=== PATIENT | female | born 1955 | race Caucasian/White ===

== ENCOUNTER → 2020-06-18 | Outpatient (CLI) | payer MEDICARE ==
[~2020-06-18] VITALS: Ht 154.9 cm; Wt 82.0 kg
[~2020-06-18] MED LIST: LOSA25TA21 PO; METF-960 PO
[2020-06-18 15:29] VITALS: BP 101/88
== END | disposition home or self-care (01) ==
LOC: SRCNTR 11:14
PROVIDERS: ATTEND Hospitalist
DX: I10 Essential (primary) hypertension (principal); E11.9 Type 2 diabetes mellitus without complications; K92.2 Gastrointestinal hemorrhage, unspecified
CPT/HCPCS: G0463

== ENCOUNTER → 2020-09-17 | Outpatient (CLI) | payer MEDICARE ==
[~2020-09-17] VITALS: Ht 154.9 cm; Wt 79.9 kg
[~2020-09-17] MED LIST changes: +CloNIDine HCL 0.1 MG TABLET PO ONE
[2020-09-17 10:53] VITALS: BP 200/103
[2020-09-17 13:10] LABS: GLUCOMETER DEV NAME(LOC) SHC.; GLUCOSE,POINT OF CARE 180 MG/DL (70-110)
== END | disposition home or self-care (01) ==
LOC: SRCNTR 10:31
PROVIDERS: ATTEND Hospitalist
DX: I10 Essential (primary) hypertension (principal); E11.9 Type 2 diabetes mellitus without complications; K92.2 Gastrointestinal hemorrhage, unspecified; Z79.899 Other long term (current) drug therapy; Z88.8 Allergy status to other drugs, medicaments and biological substances
CPT/HCPCS: 82962; G0463

== ENCOUNTER 2020-12-30 13:08 | Inpatient (IN) | payer MEDICARE ==
[~2020-12-30 13:08] MED LIST changes: -CloNIDine HCL 0.1 MG TABLET PO ONE; -HYDR25TA2 PO; -LOSA50TA37 PO
[2020-12-30] MEDS ORDERED: LOSARTAN POTASSIUM 50 MG TABLET PO SCH (14:04)
[2020-12-30] MEDS ORDERED: HYDROCHLOROTHIAZIDE 25 MG TABLET PO SCH (14:04)
[2020-12-30] MEDS ORDERED: HydrALAZINE HCL 20 MG/ML VIAL IVP PRN (14:15)
[2020-12-30] MEDS ORDERED: INSULIN LISPRO 100 UNITS/ML SQ PRN (14:15)
[2020-12-30] MEDS ORDERED: DEXTROSE 50%-WATER 25 GM/50 ML SYG IVP PRN (14:15)
[2020-12-30 14:16] VITALS: BP 130/69
[2020-12-30 15:16] VITALS: BP 136/72
[2020-12-30 16:30] VITALS: BP 138/69
[2020-12-30 17:30] VITALS: BP 124/74
[2020-12-30] MEDS ORDERED: GlyBURIDE 5 MG TABLET PO SCH (18:00)
[2020-12-30] MEDS ORDERED: LOSA50TA37 PO (18:39)
[2020-12-30] MEDS ORDERED: HYDR25TA2 PO (18:40)
[2020-12-30 20:58] LABS: GLUCOMETER DEV NAME(LOC) 5N.3; GLUCOSE,POINT OF CARE 291 MG/DL (70-110)
== END 2020-12-30 19:20 | disposition home or self-care (01) | DRG 305 ==
LOC: 5S 13:25
PROVIDERS: ADMIT Hospitalist; ATTEND Hospitalist
DX: I10 Essential (primary) hypertension (principal)
CPT/HCPCS: 82962

== ENCOUNTER → 2020-12-30 | Outpatient (CLI) | payer MEDICARE ==
[~2020-12-30] VITALS: Ht 154.9 cm; Wt 80.0 kg
[~2020-12-30] MED LIST changes: +GLYB5TAB10 PO; +HYDR25TA2 PO; +LOSA50TA37 PO
[2020-12-30 11:59] VITALS: BP 202/108
== END | disposition home or self-care (01) ==
LOC: SRCNTR 11:16
PROVIDERS: ATTEND Hospitalist
DX: I10 Essential (primary) hypertension (principal); E11.9 Type 2 diabetes mellitus without complications; K92.2 Gastrointestinal hemorrhage, unspecified
CPT/HCPCS: G0463

== ENCOUNTER → 2021-06-16 | Outpatient (CLI) | payer MEDICARE ==
[~2021-06-16] VITALS: Ht 154.9 cm; Wt 77.0 kg
[~2021-06-16] MED LIST changes: +HYDR25TA2 PO; +LOSA-382 PO; -LOSA25TA21 PO; -METF-960 PO
[2021-06-16 11:43] VITALS: BP 172/75
== END | disposition home or self-care (01) ==
LOC: SRCNTR 10:46
PROVIDERS: ATTEND Hospitalist
DX: I10 Essential (primary) hypertension (principal); E11.9 Type 2 diabetes mellitus without complications; K92.2 Gastrointestinal hemorrhage, unspecified
CPT/HCPCS: G0463

== ENCOUNTER → 2022-04-28 | Outpatient (CLI) | payer MEDICARE ==
[~2022-04-28] VITALS: Ht 154.9 cm; Wt 76.0 kg
[~2022-04-28] MED LIST changes: +GLYB-145 PO; -GLYB5TAB10 PO; +METO25 PO
[2022-04-28 10:52] VITALS: BP 142/87
[2022-04-28 13:36] LABS: GLUCOMETER DEV NAME(LOC) SHC.; GLUCOSE,POINT OF CARE 395 MG/DL (70-110)
== END | disposition home or self-care (01) ==
LOC: SRCNTR 10:33
PROVIDERS: ATTEND Hospitalist
DX: I10 Essential (primary) hypertension (principal); E78.5 Hyperlipidemia, unspecified; J44.9 Chronic obstructive pulmonary disease, unspecified; G47.30 Sleep apnea, unspecified; M34.9 Systemic sclerosis, unspecified; M54.50 Low back pain, unspecified
CPT/HCPCS: 82962; G0463

== ENCOUNTER → 2022-04-28 | Outpatient (CLI) | payer MEDICARE ==
[2022-04-28 12:57] LABS: BASOPHILS % (AUTO) 0.5 % (0.0-2.0); HEMATOCRIT 42.8 % (36-46); HEMOGLOBIN 14.2 g/dL (12.0-16.0); LYMPHOCYTES # (AUTO) 1.8 K/uL (1.0-4.8); MEAN CORPUSCULAR HEMOGLOBIN 29.7 pg (26.0-34.0); MEAN CORPUSCULAR HGB CONC 33.3 G/dL (31.0-37.0); MEAN CORPUSCULAR VOLUME 89 fL (80-100); MONOCYTES # (AUTO) 0.4 K/uL (0.1-1.0); MONOCYTES % (AUTO) 4.4 % (2.0-9.0); NEUTROPHILS # (AUTO) 6.5 K/uL (1.8-7.7); NEUTROPHILS % (AUTO) 74.1 % (40.0-70.0); PLATELET COUNT (AUTO) 171 K/uL (150-450); RED CELL DISTRIBUTION WIDTH 13.8 % (11.5-14.5)
[2022-04-28 13:17] LABS: HEMOGLOBIN A1C 12.5 % (3.8-5.6)
[2022-04-28 13:27] LABS: ALBUMIN 3.4 g/dL (3.4-5.0); BILIRUBIN,TOTAL 0.6 mg/dL (0.1-1.0); CHOL/HDL RATIO 2.9 (3.9-5.7); CREATININE 0.95 mg/dL (0.60-1.30); POTASSIUM 3.5 mmol/L (3.5-5.1); THYROID STIMULATING HORMONE 0.78 uIU/mL (0.36-3.74)
== END | disposition home or self-care (01) ==
LOC: LABMN 12:32
PROVIDERS: ATTEND Hospitalist
DX: Z01.89 Encounter for other specified special examinations (principal); I10 Essential (primary) hypertension; E11.9 Type 2 diabetes mellitus without complications
CPT/HCPCS: 80053; 80061; 83036; 84443; 85025

== ENCOUNTER → 2023-03-27 | Outpatient (CLI) | payer MEDICARE ==
[~2023-03-27] VITALS: Ht 154.9 cm; Wt 74.0 kg
[~2023-03-27] MED LIST changes: +GLYB5TAB9 PO
[2023-03-27 12:27] VITALS: BP 146/89; PULSE 81; RESP 22; TEMP 98.2; O2SAT 97
[2023-03-27 13:11] LABS: GLUCOMETER DEV NAME(LOC) SHC.; GLUCOSE,POINT OF CARE 375 MG/DL (70-110)
== END | disposition home or self-care (01) ==
LOC: SRCNTR 11:58
PROVIDERS: ATTEND Hospitalist
DX: Z09 Encounter for follow-up examination after completed treatment for conditions other than malignant neoplasm (principal); I10 Essential (primary) hypertension; E11.9 Type 2 diabetes mellitus without complications
CPT/HCPCS: 82962; G0463

== ENCOUNTER 2024-07-08 12:09 | Emergency (ER) | payer MEDICARE ==
[~2024-07-08 12:09] MED LIST changes: -GLYB-145 PO; +SITA100 PO
[2024-07-08 13:06] LABS: BASOPHILS % (AUTO) 0.6 % (0.0-2.0); EOSINOPHILS % (AUTO) 1.6 % (1.0-6.0); HEMATOCRIT 42.4 % (36-46); HEMOGLOBIN 14.1 g/dL (12.0-16.0); LYMPHOCYTES # (AUTO) 1.5 K/uL (1.0-4.8); LYMPHOCYTES % (AUTO) 22.8 % (22.0-44.0); MEAN CORPUSCULAR HEMOGLOBIN 29.8 pg (26.0-34.0); MEAN CORPUSCULAR HGB CONC 33.3 G/dL (31.0-37.0); MEAN CORPUSCULAR VOLUME 90 fL (80-100); MONOCYTES # (AUTO) 0.3 K/uL (0.1-1.0); MONOCYTES % (AUTO) 4.8 % (2.0-9.0); NEUTROPHILS # (AUTO) 4.7 K/uL (1.8-7.7); NEUTROPHILS % (AUTO) 70.2 % (40.0-70.0); PLATELET COUNT (AUTO) 135 K/uL (150-450); RED BLOOD CELL COUNT(AUTO) 4.74 MIL/uL (4.00-5.20); RED CELL DISTRIBUTION WIDTH 13.8 % (11.5-14.5); WHITE BLOOD COUNT (AUTO) 6.7 K/uL (4.5-11.0)
[2024-07-08 13:24] LABS: CALCIUM, TOTAL 9.7 mg/dL (8.8-10.5); CREATININE 0.97 mg/dL (0.60-1.30); POTASSIUM 3.1 mmol/L (3.5-5.1)
[2024-07-08] MEDS: POTASSIUM CHLORIDE 20 MEQ ER TABLET PO ONE (14:17)
[2024-07-08 14:23] VITALS: BP 146/92; PULSE 75; O2SAT 96
== END 2024-07-08 14:25 | disposition home or self-care (01) ==
LOC: EMS 12:09
DX: K92.1 Melena (principal); E87.6 Hypokalemia; E11.65 Type 2 diabetes mellitus with hyperglycemia; I10 Essential (primary) hypertension; Z79.84 Long term (current) use of oral hypoglycemic drugs; Z79.899 Other long term (current) drug therapy
CPT/HCPCS: 80048; 85025; 99283